=== PATIENT | male | born 1950 | race Caucasian/White ===

== ENCOUNTER → 2025-01-10 | Outpatient (CLI) | payer OTHER ==
[~2025-01-10] MED LIST: ASCO500T20 PO; CALCIUM PO; VITA1CAP85 PO; [UNRECOGNIZED DRUG - OTHER] PO
--- NOTE | 2025-01-10 16:36 | HMCIMG ---
EXAM: LUMBAR SPINE 2-3VWS REASON: ACUTE BILATERAL LOW BACK PAIN, W/O SCIATICA. COMPARISON: None. TECHNIQUE: 3 views of the lumbar spine were obtained. FINDINGS: There is normal appearance of the lumbar vertebral bodies. There is severe osteopenia. Disc interspace heights are preserved. Alignment is normal. There are no visible fractures. Small ventral marginal spur suggesting of early osteoarthritic changes.. Soft tissues appear unremarkable. There is atherosclerotic change of the abdominal aorta and iliac vessels with calcified plaque. IMPRESSION: 1. No acute fracture or malalignment 2. Severe osteopenia 3. Small ventral marginal spur suggesting of early osteophytic changes.
== END | disposition home or self-care (01) ==
LOC: RAH 08:54
PROVIDERS: ATTEND Family Medicine
DX: M85.88 Other specified disorders of bone density and structure, other site (principal); I70.0 Atherosclerosis of aorta; M54.50 Low back pain, unspecified
CPT/HCPCS: 72100